=== PATIENT | male | born 1985 | race American Indian/Alaskan Native ===

== ENCOUNTER 2021-09-16 20:02 | Emergency (ER) | payer BC ==
[2021-09-16 20:48] VITALS: BP 128/89
--- NOTE | 2021-09-17 06:12 | XRay Report ---
LEFT TIBIA-FIBULA 2 VIEW(S) INDICATION / CLINICAL INFORMATION: leg pain post fall COMPARISON: None available. FINDINGS: BONES / JOINT(S): No acute fracture or subluxation. No significant arthritis. SOFT TISSUES: No significant abnormality. ADDITIONAL FINDINGS: None. IMPRESSION: 1. No acute pathology. Signer Name: Eren Marquez II, MD Signed: 09/17/2021 6:07 AM Workstation Name: [id number]
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
== END 2021-09-17 06:43 | disposition home or self-care (01) ==
LOC: ED 20:02
DX: S80.12XA Contusion of left lower leg, initial encounter (principal); V89.2XXA Person injured in unspecified motor-vehicle accident, traffic, initial encounter; Y93.89 Activity, other specified; Y92.488 Other paved roadways as the place of occurrence of the external cause; Y99.8 Other external cause status
CPT/HCPCS: 99283